=== PATIENT | male | born 1980 | race Caucasian/White ===

== ENCOUNTER 2016-05-19 11:10 | Day surgery (SDC) | payer OTHER ==
[~2016-05-19] VITALS: Ht 182.9 cm; Wt 87.1 kg
[~2016-05-19 11:10] MED LIST: 0.9% Sodium Chloride 1,000 ML IV SCH; DICY20TA33 PO; FLUO10CA20 PO; HYOS0.1218 SL; OMEP20CA11 PO; ONDA4TAB9 PO; Sodium Chloride LOK Flush 10 mL Syringe IV PRN; fentaNYL-PF 50 mCg/mL 2 mL Inj IVPUSH PRN
[2016-05-19 11:32] VITALS: BP 117/72; PULSE 79; RESP 17; O2SAT 95
[2016-05-19 12:40] VITALS: BP 104/45; PULSE 66; RESP 14; O2SAT 95
[2016-05-19 12:51] VITALS: BP 87/60; PULSE 91; RESP 14; O2SAT 99
[2016-05-19 13:03] VITALS: BP 94/45; PULSE 76; RESP 14; O2SAT 97
[2016-05-19 13:10] VITALS: BP 100/53; PULSE 80; RESP 14; O2SAT 97
--- NOTE | 2016-05-19 14:49 | ENDO ---
[address] [address] ENDOSCOPY PROCEDURE PATIENT: BRITTNEY SAINZ : 1980 MR#: [id number] ADMIT: 05/19/2016 JOB ID: [id number] TYPE OF OPERATION: Esophagogastroduodenoscopy with biopsy and colonoscopy. PREOPERATIVE DIAGNOSIS: Epigastric pain and diarrhea. POSTOPERATIVE DIAGNOSIS(ES): 1. Normal upper endoscopy. 2. Small internal hemorrhoids. ANESTHESIA: Fentanyl 150 mcg and Versed 7 mg IV administered. COMPLICATION: None. ESTIMATED BLOOD LOSS: Nil. DESCRIPTION OF PROCEDURE: After risks and benefits were explained to the patient, informed consent was obtained. After anesthesia was administered, an upper endoscope was inserted into the mouth, intubating through the esophagus, stomach, second portion of duodenum, and the mucosa carefully examined. At the end of the procedure, the scope was withdrawn and the procedure terminated. A colonoscope was then inserted from the rectum to the terminal ileum and the mucosa carefully examined. Prep of the patient was excellent. After the procedure was done, the scope was withdrawn and the procedure terminated. FINDINGS: Upon inspection of the esophagus, the esophagus was normal, without masses, ulcers, or lesions. Z-line located 40 cm from the incisors. Upon entering the stomach, the stomach was also normal, without masses, ulcers, or lesions. Retroflexion was normal. Duodenal bulb, first and second portion were normal. Biopsies were taken in the duodenum, antrum, and body of the stomach. Upon inspection of the anus, no masses, hemorrhoids, ulcers, or fissures that were seen. Throughout the entire examination there were no polyps, masses, or lesions. Biopsies taken in the terminal and random colon. Retroflexion showed small internal hemorrhoids. IMPRESSION: 1. Small internal hemorrhoids. 2. Normal upper endoscopy. RECOMMENDATION: Await pathology results. Follow up in GI Clinic as needed.
--- NOTE | 2016-05-22 14:05 | PATH ---
SURGICAL PATHOLOGY Attending Physician:Shalom Yin MD CASE STATUS: Signed Out PATIENT NAME: BRITTNEY SAINZ PID: [id number] : 1980 DATE COLLECTED:05/19/2016 21:09 SPECIMEN: 1: Duodenum, Biopsy 2: Stomach, Antrum, Biopsy 3: Gastric, Biopsy 4: Ileum, Biopsy 5: Colon, Biopsy CLINICAL HISTORY: 1). DUODENAL BIOPSY 2). ANTRUM BIOPSY 3). GASTRIC BODY BIOPSY 4). TERMINAL ILEUM BIOPSY 5). RANDOM COLON FINAL DIAGNOSIS: 1.DUODENUM BIOPSY: FRAGMENTS OF NORMAL-APPEARING SMALL BOWEL MUCOSA. Normal delicate mucosal villi present. Negative for significant inflammation, dysplasia and malignancy. 2.ANTRUM BIOPSY: MUCOSAL HYPEREMIA WITHOUT ASSOCIATED SIGNIFICANT INFLAMMATION INVOLVING ANTRAL MUCOSA. Negative for evidence of Helicobacter. Negative for intestinal metaplasia. Negative for dysplasia and malignancy. 3.GASTRIC BODY BIOPSY: MUCOSAL HYPEREMIA WITHOUT ASSOCIATED SIGNIFICANT INFLAMMATION INVOLVING FUNDIC MUCOSA. Negative for evidence of Helicobacter. Negative for intestinal metaplasia. Negative for dysplasia and malignancy. 4.TERMINAL ILEUM BIOPSY: FRAGMENTS OF NORMAL-APPEARING TERMINAL ILEUM MUCOSA WITH PROMINENT PEYER' S PATCHES. Negative for granulomas. Negative for significant inflammation, dysplasia and malignancy. 5.RANDOM COLON BIOPSIES: FRAGMENTS OF NORMAL-APPEARING COLON MUCOSA. Negative for significant architectural distortion. Negative for significant inflammation, dysplasia and malignancy. ICD10 code R19.7 GROSS DESCRIPTION: Received are five formalin-filled containers, each labeled with the patient' s name. 1. Received in formalin, labeled with the patient' s name and "duodenal biopsy", are three fragments of encinas, soft tissue ranging in size from 0.1 x 0.1 x 0.1 cm to 0.2 x 0.1 x 0.1 cm. All fragments are totally submitted in cassette 1A. 2. Received in formalin, labeled with the patient' s name and "antrum biopsy", is one fragment of encinas, soft tissue measuring 0.2 x 0.2 x 0.2 cm. The fragment is totally submitted in cassette 2A. 3. Received in formalin, labeled with the patient' s name and "gastric", are two fragments of encinas, soft tissue ranging in size from 0.1 x 0.1 x 0.1 cm to 0.2 x 0.1 x 0.1 cm. All fragments are totally submitted in cassette 3A. 4. Received in formalin, labeled with the patient' s name and "TI biopsy", are two fragments of encinas, soft tissue ranging in size from 0.1 x 0.1 x 0.1 cm to 0.2 x 0.2 x 0.2 cm. All fragments are totally submitted in cassette 4A. 5. Received in formalin, labeled with the patient' s name and "random colon biopsy", are six fragments of encinas, soft tissue ranging in size from 0.1 x 0.1 x 0.1 cm to 0.2 x 0.2 x 0.1 cm. All fragments are totally submitted in cassette 5A. ([id number]) MICRO DESCRIPTION: See diagnosis. ICD-9 CODES: CPT CODES: 1: 90978 2: 54020 3: 78363 4: 14950 5: 89569 Electronically Signed Out Yury Ospina MD [facility] [address], [place] [address] Technical component performed at [facility], [facility] [address], [place], [address]
== END 2016-05-19 23:59 | disposition home or self-care (01) ==
LOC: END 11:10
PROVIDERS: ATTEND Internal Medicine Gastroenterology
DX: R19.7 Diarrhea, unspecified (principal); K64.8 Other hemorrhoids; R10.13 Epigastric pain; R10.31 Right lower quadrant pain; M26.609 Unspecified temporomandibular joint disorder, unspecified side
CPT/HCPCS: 43239; 45380; 88305; G0500; J2250; J3010; J7030